=== PATIENT | male | born 1970 ===

== ENCOUNTER → 2018-02-08 15:00 | Outpatient (CLI) | payer OTHER, SELFPAY | DX: Z23 Encounter for immunization (principal) | CPT/HCPCS: 90471; 90686 ==

== ENCOUNTER 2018-08-13 13:11 | Emergency (ER) | payer OTHER, SELFPAY ==
[2018-08-13 13:12] VITALS: BP 140/99; PULSE 90; RESP 18; TEMP 36.2; O2SAT 100; BMI 28.0
--- NOTE | 2018-08-13 13:16 | DI.RAD.S_ITS ---
PROCEDURE: XR CHEST 2V INDICATIONS: r/o tb TECHNIQUE: 2 views of the chest were acquired. COMPARISON: None. FINDINGS: Surgical changes and devices: None. Lungs and pleura: Lungs are clear. No pleural effusions or pneumothorax. Mediastinum: Mediastinal contours are normal. Heart size is normal. Bones and chest wall: No suspicious bony abnormalities. Soft tissues appear unremarkable. IMPRESSION: Normal for age, no suspicion for underlying tuberculosis either chronic or acute. Dictated by: José Miguel Howard M.D. on 08/13/2018 at 13:40 Approved by: José Miguel Howard M.D. on 08/13/2018 at 13:41
--- NOTE | 2018-08-13 13:28 | ED.RECABL ---
HPI - Recheck/Abnormal Lab/Rx General Chief Complaint: Recheck/Abnormal Lab/Rx Stated Complaint: need xray to r/o tb Time Seen by Provider: 08/13/18 13:28 Source: patient Mode of arrival: ambulatory Limitations: no limitations History of Present Illness HPI narrative: 48-year-old male comes to the emergency department for an evaluation for TB related to work. Patient requesting chest x-ray as we do not have the reagent for TB skin text, Mantoux. Patient is asymptomatic. Related Data Previous Rx's Medication Instructions Recorded oseltamivir [Tamiflu] 75 mg PO BID 5 Days #0 cap 06/18/17 Allergies Allergy/AdvReac Type Severity Reaction Status Date / Time No Known Drug Allergies Allergy Verified 08/13/18 13:12 Review of Systems Review of Systems ROS Unobtainable: All systems reviewed & are unremarkable except as noted in HPI and below PFSH Social History Smoking Status: Never smoker Social History Smoking Status: Never smoker Exam Initial Vital Signs Initial Vital Signs: Vital Signs Temperature 97.1 F L 08/13/18 13:12 Pulse Rate 90 08/13/18 13:12 Respiratory Rate 18 08/13/18 13:12 Blood Pressure 140/99 H 08/13/18 13:12 Pulse Oximetry 100 08/13/18 13:12 GENERAL: Alert and oriented x three, Well-nourished, well-appearing male in no acute distress HEENT: Head normocephalic, atraumatic, EOMI, pupils reactive, face symmetric, moist mucous membranes NECK: Supple, full range of motion CARDIOVASCULAR: Regular rate and rhythm without murmurs, rubs or gallops. RESPIRATORY: Breath sounds equal bilaterally, no wheezes rales or rhonchi. EXTREMITIES: Normal range of motion, no clubbing or edema. Neurovascularly intact NEUROLOGICAL: Cranial nerves II through XII grossly intact. Moving all extremities. Normal gait. SKIN: Warm, dry, no petechiae, no rashes or lesions. Course Orders Ordered: ED Orders 08/13/18 13:16 XR chest 2V Stat Vital Signs - 8 hr 08/13/18 13:12 Temperature 97.1 F L Pulse Rate 90 Respiratory Rate 18 Blood Pressure 140/99 H Pulse Oximetry 100 MDM - Recheck/Abnormal Lab/Rx Imaging Data Chest x-ray: Radiologist's impression: [address] [address] XRay Report Signed Patient: Jerry Simms [facility]#: [id number] : 1970Acct:[id number] Age/Sex: 48 / MDate of Service: 08/13/18 Loc: ED Accession Number: [id number] Procedure: XR chest 2V Ordering Provider: Demetria Rodriguez D.O. PROCEDURE: XR CHEST 2V INDICATIONS: r/o tb TECHNIQUE: 2 views of the chest were acquired. COMPARISON: None. FINDINGS: Surgical changes and devices: None. Lungs and pleura: Lungs are clear. No pleural effusions or pneumothorax. Mediastinum: Mediastinal contours are normal. Heart size is normal. Bones and chest wall: No suspicious bony abnormalities. Soft tissues appear unremarkable. IMPRESSION: Normal for age, no suspicion for underlying tuberculosis either chronic or acute. Dictated by: José Miguel Howard M.D. on 08/13/2018 at 13:40 Approved by: José Miguel Howard M.D. on 08/13/2018 at 13:41 Discharge Plan Departure Patient Disposition: Home Clinical Impression: Encounter for screening for respiratory tuberculosis Discharge Date/Time: 08/13/18 13:57 Interventions: ED Discharge Assessment Last Done: 08/13/18 13:57 Activity Restrictions/Additional Instructions: Follow up with your physician for any additional testing/evaluation as needed. Prescriptions: No Action oseltamivir [Tamiflu] 75 MG capsule 75 mg PO BID 5 Days Qty: 0 RF: 0 Referrals: Khang Gonzalez MD [Primary Care Provider] -
--- NOTE | 2018-08-13 13:42 | ED_ITS ---
HPI - Recheck/Abnormal Lab/Rx General Chief Complaint: Recheck/Abnormal Lab/Rx Stated Complaint: need xray to r/o tb Time Seen by Provider: 08/13/18 13:28 Source: patient Mode of arrival: ambulatory Limitations: no limitations History of Present Illness HPI narrative: 48-year-old male comes to the emergency department for an evaluation for TB related to work. Patient requesting chest x-ray as we do not have the reagent for TB skin text, Mantoux. Patient is asymptomatic. Related Data Previous Rx's Medication Instructions Recorded oseltamivir [Tamiflu] 75 mg PO BID 5 Days #0 cap 06/18/17 Allergies Allergy/AdvReac Type Severity Reaction Status Date / Time No Known Drug Allergies Allergy Verified 08/13/18 13:12 Review of Systems Review of Systems ROS Unobtainable: All systems reviewed & are unremarkable except as noted in HPI and below PFSH Social History Smoking Status: Never smoker Social History Smoking Status: Never smoker Exam Initial Vital Signs Initial Vital Signs: Vital Signs Temperature 97.1 F L 08/13/18 13:12 Pulse Rate 90 08/13/18 13:12 Respiratory Rate 18 08/13/18 13:12 Blood Pressure 140/99 H 08/13/18 13:12 Pulse Oximetry 100 08/13/18 13:12 GENERAL: Alert and oriented x three, Well-nourished, well-appearing male in no acute distress HEENT: Head normocephalic, atraumatic, EOMI, pupils reactive, face symmetric, moist mucous membranes NECK: Supple, full range of motion CARDIOVASCULAR: Regular rate and rhythm without murmurs, rubs or gallops. RESPIRATORY: Breath sounds equal bilaterally, no wheezes rales or rhonchi. EXTREMITIES: Normal range of motion, no clubbing or edema. Neurovascularly intact NEUROLOGICAL: Cranial nerves II through XII grossly intact. Moving all extremities. Normal gait. SKIN: Warm, dry, no petechiae, no rashes or lesions. Course Orders Ordered: ED Orders 08/13/18 13:16 XR chest 2V Stat Vital Signs - 8 hr 08/13/18 13:12 Temperature 97.1 F L Pulse Rate 90 Respiratory Rate 18 Blood Pressure 140/99 H Pulse Oximetry 100 MDM - Recheck/Abnormal Lab/Rx Imaging Data Chest x-ray: Radiologist's impression: [address] [address] XRay Report Signed Patient: Jerry Simms [facility]#: [id number] : 1970Acct:[id number] Age/Sex: 48 / MDate of Service: 08/13/18 Loc: ED Accession Number: [id number] Procedure: XR chest 2V Ordering Provider: Demetria Rodriguez D.O. PROCEDURE: XR CHEST 2V INDICATIONS: r/o tb TECHNIQUE: 2 views of the chest were acquired. COMPARISON: None. FINDINGS: Surgical changes and devices: None. Lungs and pleura: Lungs are clear. No pleural effusions or pneumothorax. Mediastinum: Mediastinal contours are normal. Heart size is normal. Bones and chest wall: No suspicious bony abnormalities. Soft tissues appear unremarkable. IMPRESSION: Normal for age, no suspicion for underlying tuberculosis either chronic or acute. Dictated by: José Miguel Howard M.D. on 08/13/2018 at 13:40 Approved by: José Miguel Howard M.D. on 08/13/2018 at 13:41 Discharge Plan Departure Patient Disposition: Home Clinical Impression: Encounter for screening for respiratory tuberculosis Discharge Date/Time: 08/13/18 13:57 Interventions: ED Discharge Assessment Last Done: 08/13/18 13:57 Activity Restrictions/Additional Instructions: Follow up with your physician for any additional testing/evaluation as needed. Prescriptions: No Action oseltamivir [Tamiflu] 75 MG capsule 75 mg PO BID 5 Days Qty: 0 RF: 0 Referrals: Khang Gonzalez MD [Primary Care Provider] -
== END 2018-08-13 13:57 | disposition home or self-care (01) ==
PROVIDERS: Emergency Provider Emergency Medicine
DX: Z11.1 Encounter for screening for respiratory tuberculosis (principal)
CPT/HCPCS: 71046; 99282; 99283